=== PATIENT | male | born 1955 | race Caucasian/White ===

== ENCOUNTER 2023-04-01 13:50 | Emergency (ER) | payer OTHER ==
[~2023-04-01] VITALS: Ht 185.4 cm; Wt 95.3 kg
[2023-04-01 13:50] VITALS: BP_SYST 127; PULSE 81; RESP 18; TEMP 97.8; O2SAT 94
[2023-04-01] MEDS ORDERED: DIPHTH,PERTUSS(ACELL),TET VAC 0.5 ML VIAL (Tdap) I.M. ONE (14:45)
[2023-04-01] MEDS ORDERED: NACL 0.9% 1,000 ML IV ONE (14:45)
[2023-04-01] MEDS ORDERED: LIDOCAINE 1%, 20 ML MDV 20 ML ONE (14:57)
[2023-04-01] MEDS ORDERED: BACITRACIN 1 GM OINT TP ONE ×2 (15:08→15:15)
[2023-04-01 16:17] LABS: BASOPHILS % (AUTO) 0.4 % (0.0-2.0); EOSINOPHILS # (AUTO) 0.1 K/uL (0.0-0.4); EOSINOPHILS % (AUTO) 1.2 % (0.0-4.0); HEMATOCRIT 37.9 % (36-54); HEMOGLOBIN 12.6 g/dL (14.0-18.0); LYMPHOCYTES # (AUTO) 1.1 K/uL (1.0-5.5); LYMPHOCYTES % (AUTO) 9.6 % (20.5-51.5); MEAN CORPUSCULAR HEMOGLOBIN 29 pg (27-31); MEAN CORPUSCULAR HGB CONC 33 % (32-36); MEAN CORPUSCULAR VOLUME 85 fL (79.0-98.0); MONOCYTES # (AUTO) 0.9 K/uL (0.0-1.0); MONOCYTES % (AUTO) 7.6 % (1.7-9.3); NEUTROPHILS # (AUTO) 9.4 K/uL (1.8-7.7); NEUTROPHILS % (AUTO) 81.2 % (40.0-70.0); PLATELET COUNT (AUTO) 328 K/uL (130-430); RED BLOOD CELL COUNT(AUTO) 4.44 MIL/uL (4.2-6.2); RED CELL DISTRIBUTION WIDTH 14.3 % (9.0-15.0); WHITE BLOOD COUNT (AUTO) 11.6 K/uL (4.8-10.8)
[2023-04-01 16:22] LABS: CALCIUM 9.1 mg/dL (8.4-11.0); CREATININE 1.13 mg/dL (0.55-1.30)
[2023-04-01 16:54] VITALS: BP_SYST 117; PULSE 97; RESP 18; TEMP 98.1; O2SAT 98
== END 2023-04-01 16:50 | disposition home or self-care (01) ==
LOC: SED 13:50
DX: S61.012A Laceration without foreign body of left thumb without damage to nail, initial encounter (principal); R55 Syncope and collapse; I10 Essential (primary) hypertension; Z79.899 Other long term (current) drug therapy; W26.8XXA Contact with other sharp object(s), not elsewhere classified, initial encounter; Y93.89 Activity, other specified; Y92.89 Other specified places as the place of occurrence of the external cause; Y99.8 Other external cause status
CPT/HCPCS: 99283; 96360; 80048; 85025; 36415; 90715; 90471; 12001; J2001; J7030